=== PATIENT | male | born 1940 | race African-American/Black ===

== ENCOUNTER 2018-06-21 07:37 | Emergency (ER) | payer OTHER, BC ==
[2018-06-21 07:42] VITALS: BMI 31.5
[2018-06-21] MEDS ORDERED: ASPIRIN 81 MG CHEWABLE TABLETS PO ONE ×3 (07:59→08:35)
[2018-06-21] MEDS ORDERED: ASPIRIN 81 MG CHEWABLE TABLETS ONE (07:59)
--- NOTE | 2018-06-21 08:01 | PDOC ---
History of Present Illness - General Chief Complaint: Nausea Stated Complaint: CHEST PAIN Time Seen by Provider: 06/21/18 07:43 - History of Present Illness Initial Comments: Mitch Ordonez is a 77yo man with a PMH of controlled HTN and rate-controlled a- fib who presents with non-radiating chest pain, nausea, dry heaves, and diaphoresis that started around 6am today. He also reports one episode of diarrhea at the time. He has continued chest discomfort, though it has improved , and no longer has any diaphoresis or vomiting. He was walking from the bathroom in his house when the pain started. Mr Ordonez states that he has never had similar pain in the past. He follows with a procedure rn at [facility], Dr Swain, and has never been seen by cardiology at [facility]. He does not know if he has ever had EKG changes in the past. Past History - Past Medical History Allergies/Adverse Reactions: Allergies Allergy/AdvReac Type Severity Reaction Status Date / Time Penicillins Allergy Verified 06/21/18 07:42 Home Medications: Ambulatory Orders Amlodipine Besylate [Norvasc -] 5 mg PO DAILY 08/02/14 Aspirin [ASA -] 81 mg PO DAILY 06/21/18 Triamterene/Hydrochlorothiazid [Triamterene-Hctz 37.5-25 mg Cp] 1 each PO DAILY 06/21/18 Cancer: Yes (PROSTATE CA) COPD: No HTN: Yes - Suicide/Smoking/Psychosocial Hx Smoking History: Never smoked Have you smoked in the past 12 months: No Hx Alcohol Use: No Substance Use Type: None Review of Systems - Review of Systems Comments:: General: No fevers, no chills, no weight or appetite change, no malaise HEENT: No changes in vision, no changes in hearing, no congestion, no sore throat CV: See HPI. +LE edema Pulm: No SOB, no cough, no wheezing GI: +Nausea, dry heaves. No change in bowel habits, no melena : No frequency, no urgency, no dysuria Musc: No back pain, no joint swelling, no recent injury Skin: No rash, no lesions, no erythema Endo: No excessive thirst, no heat/cold intolerance Heme: No unusual bruising or bleeding, no swollen glands Neuro: No syncope, no numbness/tingling, no focal weakness Vasc: No claudication Psych: No recent change in mood, no SI or HI *Physical Exam - Vital Signs Last Vital Signs Temp Pulse Resp BP Pulse Ox 97 F L 65 18 135/72 100 06/21/18 07:40 06/21/18 07:40 06/21/18 07:40 06/21/18 07:40 06/21/18 07:40 - Physical Exam Comments: General: No acute distress, no diaphoresis, appears younger than stated age HEENT: PERRL, EOMI, MMM, voice normal, normal neck ROM, no LAD Cards: Irregularly irregular, normal rate, no murmur appreciated Pulm: Comfortable on room air, clear to auscultation bilaterally Abd: Soft, nontender, nondistended : No CVA tenderness Ext: Atraumatic. No LE edema; RLE full-leg compression stocking in place. ROM intact. Strength 5/5 and equal bilaterally Vasc: Extremities WWP. Palpable radial and pedal pulses bilaterally Skin: Normal color, no rashes or lesions Neuro: A&Ox3, CN grossly intact, normal speech, motor/sensory grossly intact and symmetric Psych: Mood appropriate to situation Moderate Sedation - Procedure Monitoring Vital Signs: Procedure Monitoring Vital Signs Temperature 97 F L 06/21/18 07:40 Pulse Rate 65 06/21/18 07:40 Respiratory Rate 18 06/21/18 07:40 Blood Pressure 135/72 06/21/18 07:40 O2 Sat by Pulse Oximetry (%) 100 06/21/18 07:40 ED Treatment Course - LABORATORY CBC & Chemistry Diagram: 06/21/18 07:45 06/21/18 09:02 Medical Decision Making - Medical Decision Making 06/21/18 08:16 Mitch Ordonez is a 77yo man with a PMH of HTN and rate-controlled a-fib who presents with concern for possible STEMI with chest pain, nausea/vomiting, diaphoresis and EKG changes. - EKG with elevations in V2-V4, ST depressions in V5 and V6, Q waves in V1-V4. A -fib w/ rate 76/min - Chewable ASA 324mg - CBC, CMP, mag, coags, trop, CXR ordered - Call placed to on-call procedure rn. No prior EKG available, pt's procedure rn Dr Swain phone number not available and pt does not know the procedure rn's first name, will not be able to contact. 06/21/18 08:29 - Spoke to Dr Granados, recommending transfer to [facility] - Call to [facility] transfer center placed by Dr Simpson - Discussed with pt and his , they agree to this plan - Labs sent and pending - SBP 130's, HR in 80's. Will give 1 tab nitro for continued chest discomfort 06/21/18 09:00 - Chemistry hemolized; resending for trop - EMS here for transfer, will send pending availability of interventional cardiology at [facility] - Brillinta, heparin bolus, atorvastatin 80mg ordered by Dr Simpson per discussion with [facility] Discussed with Dr Simpson. Delmy Harper PGY1 *DC/Admit/Observation/Transfer Diagnosis at time of Disposition: STEMI (ST elevation myocardial infarction) - Discharge Dispostion Disposition: TRANSFER ACUTE CARE/OTHER HOSP - Referrals Referrals: Ibeth Jacome MD [Primary Care Provider] - - Patient Instructions - Post Discharge Activity - Transfer to Acute Care Facility Receiving Facility: [facility] Accepting Physician:: Miguel Angel Tamayo comment: 06/21/18 09:00 [facility] to [facility]
[2018-06-21 08:25] LABS: BASO % 0.4 % (0-2.0); HEMATOCRIT 46.2 % (35.4-49); HEMOGLOBIN 15.7 GM/dL (11.7-16.9); LYMPH % 36.2 % (8-40); MCHC 33.9 g/dl (32.0-35.9); MEAN CELL VOLUME 94.4 fl (80-96); MEAN PLT VOLUME 8.2 fl (7.5-11.1); MONO % 8.6 % (3.8-10.2); NEUT % 53.8 % (42.8-82.8); PLATELET COUNT 249 K/MM3 (134-434); RBC 4.89 M/mm3 (4.00-5.60); RDW 13.7 % (11.9-15.9)
--- NOTE | 2018-06-21 08:31 | PDOC ---
Attending Attestation - Resident Resident Name: Delmy Harper - ED Attending Attestation I have performed the following: I have examined & evaluated the patient, The case was reviewed & discussed with the resident, I agree w/resident's findings & plan, Exceptions are as noted - HPI HPI: 06/21/18 08:25 77 M with h/o HTN, HLD, afib not on AC, presenting to ED with chest pain, nausea , diaphoresis. Pt states he woke up at 6am this morning with these symptoms. Denies SOB. Denies back pain or abdominal pain. Denies exertional or pleuritic component of pain. No leg swelling. - Physicial Exam PE: 06/21/18 08:27 GENERAL: Awake, alert, and fully oriented, in no acute distress. HEAD: No signs of trauma EYES: PERRLA, EOMI, sclera anicteric, conjunctiva clear ENT: Auricles normal inspection, hearing grossly normal, nares patent, oropharynx clear without exudates. Moist mucosa NECK: Nontender, no stepoffs, Normal ROM, supple, no lymphadenopathy, JVD, or masses LUNGS: Breath sounds equal, clear to auscultation bilaterally. No wheezes, and no crackles HEART: Regular rate and rhythm, normal S1 and S2, no murmurs, rubs or gallops ABDOMEN: Soft, nontender, normoactive bowel sounds. No guarding, no rebound. No masses EXTREMITIES: Normal range of motion, no edema. No clubbing or cyanosis. No cords, erythema, or tenderness NEUROLOGICAL: Cranial nerves II through XII intact. 5/5 strength and sensation in all extremities, Normal speech, normal gait, normal cerebellar function SKIN: Warm, Dry, normal turgor, no rashes or lesions noted. - Medical Decision Making 06/21/18 08:28 77 M with chest pain, diaphoresis, and nausea. Initial EKG received at 7:50AM, showing anterior Q waves with ST elevation in V2-V4, possibly J-point elevation. No reciprocal changes. - Stat repeat EKG obtained at 7:57 with similar findings - EKG not clear-cut STEMI, but given story, stat cards consult placed - Case discussed with Dr. Granados, who recommends txfer for cath - Code STEMI activated @ 8:10 06/21/18 08:29 Transfer center called - awaiting callback from [facility] 06/21/18 08:37 EKG being reviewed by Rehan Moon interventionalist 06/21/18 08:43 Pt accepted for txfer to [facility] by Dr. Michelle 06/21/18 08:46 EMS on-site to transport pt Aspirin given Heparin bolus, atorvastatin 80, and brilinta 180 ordered
[2018-06-21] MEDS ORDERED: NITROGLYCERIN SUBLINGUAL 1/150 0.4 MG TAB SL ONE (08:35)
[2018-06-21 08:36] VITALS: PULSE 79
[2018-06-21 08:37] LABS: INR 1.03 (0.83-1.09); PROTHROMBIN TIME (PATIENT) 12.1 SEC (9.7-13.0)
[2018-06-21 08:40] LABS: ACTIVATED PTT 25.4 SECONDS (25.2-36.5)
[2018-06-21] MEDS ORDERED: HEPARIN NA (PORCINE) 5,000 UNITS/ML 1ML VIAL IVPUSH PRN (08:40)
[2018-06-21] MEDS ORDERED: ATORVASTATIN CA 80 MG TABLET (FP) PO ONE (08:41)
[2018-06-21] MEDS ORDERED: TICAGRELOR 90 MG TABLET PO STA (08:45)
[2018-06-21] MEDS ORDERED: TICAGRELOR 60 MG TABLET PO STA (08:45)
[2018-06-21] MEDS ORDERED: HEPARIN NA (PORCINE) 5,000 UNITS/ML 1ML VIAL ONE (08:47)
[2018-06-21] MEDS ORDERED: ATORVASTATIN CA 40 MG TABLET (FP) ONE (08:47)
[2018-06-21] MEDS ORDERED: TICAGRELOR 90 MG TABLET PO ONE (08:48)
[2018-06-21 09:05] VITALS: BP 125/86; TEMP 98
[2018-06-21] MEDS ORDERED: TICAGRELOR 60 MG TABLET PO SCH (10:00)
[2018-06-21 11:11] LABS: ALBUMIN 3.6 g/dl (3.4-5.0); ALK PHOS 112 U/L (45-117); ANION GAP 13 MMOL/L (8-16); BILIRUBIN,TOTAL 0.5 mg/dL (0.2-1); BLOOD UREA NITROGEN 18 mg/dL (7-18); CALCIUM 8.2 mg/dL (8.5-10.1); CHLORIDE 107 mmol/L (98-107); CO2 22 mmol/L (21-32); CREATININE 1.4 mg/dL (0.55-1.3); GLUCOSE,RANDOM 162 mg/dL (74-106); POTASSIUM 3.2 mmol/L (3.5-5.1); SGOT/AST 26 U/L (15-37); SGPT/ALT 48 U/L (13-61); SODIUM 143 mmol/L (136-145); TOT PROT 6.3 g/dl (6.4-8.2)
--- NOTE | 2018-06-21 18:44 | EKG ---
Test Reason : Blood Pressure : / mmHG Vent. Rate : 079 BPM Atrial Rate : 071 BPM P-R Int : 000 ms QRS Dur : 092 ms QT Int : 422 ms P-R-T Axes : 000 004 074 degrees QTc Int : 483 ms PROBABLE ATRIAL FIBRILLATION RIGHT BUNDLE BRANCH BLOCK PREMATURE VENTRICULAR COMPLEXES ABNORMAL ECG WHEN COMPARED WITH ECG OF 21-JUN-2018 07:46, NO SIGNIFICANT CHANGE WAS FOUND Confirmed by DEDE TOLEDO MD ([id number]) on 06/21/2018 6:43:43 PM Referred By: Confirmed By:DEDE TOLEDO MD
--- NOTE | 2018-06-21 18:45 | EKG ---
Test Reason : Blood Pressure : / mmHG Vent. Rate : 076 BPM Atrial Rate : 096 BPM P-R Int : 000 ms QRS Dur : 088 ms QT Int : 412 ms P-R-T Axes : 000 -03 090 degrees QTc Int : 463 ms ATRIAL FIBRILLATION WITH PREMATURE VENTRICULAR OR ABERRANTLY CONDUCTED COMPLEXES ANTEROSEPTAL INFARCT ABNORMAL ECG NO PREVIOUS ECGS AVAILABLE Confirmed by DEDE TOLEDO MD ([id number]) on 06/21/2018 6:44:46 PM Referred By: Confirmed By:DEDE TOLEDO MD
== END 2018-06-21 09:10 | disposition short-term general hospital (02) ==
LOC: JER 07:37
PROC: 3E033GC Introduction of Other Therapeutic Substance into Peripheral Vein, Percutaneous Approach (ICD-10-PCS; principal; 2018-06-21)
DX: I21.29 ST elevation (STEMI) myocardial infarction involving other sites (principal); I10 Essential (primary) hypertension; I48.91 Unspecified atrial fibrillation; Z85.46 Personal history of malignant neoplasm of prostate
CPT/HCPCS: 36415; 71045-TC-FY; 80053; 82550; 84484; 85025; 85610; 85730; 93005; 93010; 96374; 99285-25; J1644